=== PATIENT | female | born 2000 | race Caucasian/White ===

== ENCOUNTER 2022-12-20 13:34 | Inpatient (IN) | payer OTHER ==
[2022-12-20] MEDS ORDERED: Lidocaine 1% 50 ML MDV INJECT PRN (14:18)
[2022-12-20] MEDS ORDERED: Nalbuphine 10 MG/0.5 ML Syringe IVPUSH PRN (14:18)
[2022-12-20] MEDS ORDERED: Oxytocin/Lactated Ringers 10 UNIT/1,000 ML BAG IV SCH ×2 (14:30)
[2022-12-20] MEDS ORDERED: fentaNYL 100 MCG/2 ML SDV EPIDUR PRN (14:41)
[2022-12-20] MEDS ORDERED: ePHEDrine 50 MG/ML SDV IVPUSH PRN (14:41)
[2022-12-20] MEDS ORDERED: diphenhydrAMINE 50 MG/ML SDV IVPUSH PRN (14:41)
[2022-12-20] MEDS ORDERED: Bupivacaine/fentaNYL/NS 100 ML Bag EPIDUR PRN (14:41)
[2022-12-20] MEDS: Lactated Ringers 1,000 ML IV SCH ×2 (18:55→21:20)
[2022-12-21] MEDS ORDERED: Lidocaine 1% 10 ML MDV ONE
[2022-12-21] MEDS ORDERED: Ropivacaine 0.2% PF 2 MG/ML 20 ML SDV ONE
[2022-12-21] MEDS: Lactated Ringers 1,000 ML IV SCH (00:05)
[2022-12-21] MEDS ORDERED: Misoprostol 100 MCG Tab RECTAL ONE (03:00)
[2022-12-21] MEDS ORDERED: Misoprostol 100 MCG Tab ONE (03:01)
[2022-12-21] MEDS ORDERED: Misoprostol 200 MCG Tab ONE (03:03)
[2022-12-21] MEDS ORDERED: Magnesium Hydroxide 400 MG/5 ML Susp 30 ML Cup PO PRN (05:01)
[2022-12-21] MEDS ORDERED: Witch Hazel Medicated Pads 40/Jar TOP PRN (05:01)
[2022-12-21] MEDS ORDERED: Hydrocortisone Acetate 25 MG Supp RECTAL PRN (05:01)
[2022-12-21] MEDS ORDERED: Oxytocin/Lactated Ringers 10 UNIT/1,000 ML BAG IV SCH (05:01)
[2022-12-21] MEDS ORDERED: Benzocaine/Menthol 20%-0.5% Spray 78 GM Cannister TOP PRN (05:01)
[2022-12-21] MEDS: Docusate Sodium 100 MG Cap PO PRN ×2 (05:14→20:10)
[2022-12-21] MEDS: Ibuprofen 600 MG Tab PO PRN ×3 (05:14→20:10)
[2022-12-21] MEDS: Acetaminophen 325 MG Tab PO PRN ×2 (05:14→15:50)
[2022-12-21] MEDS: Prenatal Multivitamin with Calcium/Folic Acid/Iron Tab PO SCH (11:27)
[2022-12-22] MEDS: Acetaminophen 325 MG Tab PO PRN ×2 (00:15→08:07)
[2022-12-22] MEDS: Ibuprofen 600 MG Tab PO PRN ×2 (03:45→12:33)
[2022-12-22] MEDS: Prenatal Multivitamin with Calcium/Folic Acid/Iron Tab PO SCH (08:06)
[2022-12-22] MEDS: Docusate Sodium 100 MG Cap PO PRN (08:10)
[2022-12-22] MEDS ORDERED: Ferrous Sulfate 324 MG Tab.EC PO SCH (17:00)
== END 2022-12-22 14:05 | disposition home or self-care (01) | DRG 806 ==
LOC: JD.OBCHECK 13:34 → JD.OB 13:35 → JD.OBCHECK 14:18 → OBSVTOIN 12-21 02:33 → JD.OB 12-21 02:34
PROVIDERS: ADMIT Obstetrics & Gynecology; ATTEND Obstetrics & Gynecology
PROC: 3E0R3BZ Introduction of Anesthetic Agent into Spinal Canal, Percutaneous Approach (ICD-10-PCS; principal; 2022-12-21)
PROC: 0KQM0ZZ Repair Perineum Muscle, Open Approach (ICD-10-PCS; principal; 2022-12-21)
PROC: 00HU33Z Insertion of Infusion Device into Spinal Canal, Percutaneous Approach (ICD-10-PCS; principal; 2022-12-21)
PROC: 10E0XZZ Delivery of Products of Conception, External Approach (ICD-10-PCS; principal; 2022-12-21)
PROC: 3E033VJ Introduction of Other Hormone into Peripheral Vein, Percutaneous Approach (ICD-10-PCS; principal; 2022-12-21)
DX: O42.02 Full-term premature rupture of membranes, onset of labor within 24 hours of rupture (principal); D62 Acute posthemorrhagic anemia; Z37.0 Single live birth; O90.81 Anemia of the puerperium; O72.1 Other immediate postpartum hemorrhage; O69.81X0 Labor and delivery complicated by cord around neck, without compression, not applicable or unspecified; O70.1 Second degree perineal laceration during delivery; Z3A.39 39 weeks gestation of pregnancy
CPT/HCPCS: 36415; 51701; 51702; 59025; 59409; 85025; 86592; A9270-GY; J2300; J2590; J2795; J3010; J3490; J7120